=== PATIENT | male | born 1945 | race Caucasian/White ===

== ENCOUNTER 2017-07-20 20:04 | Emergency (ER) | payer MEDICARE, OTHER ==
[~2017-07-20] VITALS: Ht 170.2 cm; Wt 95.3 kg
[~2017-07-20 20:04] MED LIST changes: -DOXY-181 PO; -OXYC-865 PO; -PRED-1 PO; -PRED-420 PO
[2017-07-20] MEDS ORDERED: predniSONE 20 MG TAB PO ONE (20:15)
[2017-07-20] MEDS ORDERED: IBUPROFEN 200 MG TAB PO ONE (20:15)
--- NOTE | 2017-07-20 20:21 | ER Report ---
History and Physical Time Seen By MD: 20:05 Hx. of Stated Complaint: swollen, painful right knee since last night HPI/ROS CHIEF COMPLAINT: Right knee pain and swelling HISTORY OF PRESENT ILLNESS: 71-year-old male brought in by EMS from home. Patient has right knee swelling for 3 days. He recalls no traumatic injury. He denies history of gout. He does have a history of arthritis. He's had a sinus infection for over one week. He notes no fever, chills or body aches. Presently. There is obviously a tense effusion with normal appearing, skin of the right knee. He is unable to get comfortable. He describes significant 8/ 10 throbbing pain in his right knee, aggravated by any movement or palpation. Allergies: Coded Allergies: iodine (Verified Allergy, Mild, 07/20/17) Penicillins (Verified Allergy, Unknown, 07/20/17) Home Meds Active Scripts Prednisone 10 Mg Tab (PREDNISONE 10 MG TAB) 10 Mg Tablet, 10 MG PO QDAY Y for reduce arthritis inflammation, #6 2 tabs daily for 2 days 1 tab daily for 2 days Prov:VERO MOBLEY DO 07/20/17 Oxycodone Hcl/Acetaminophen (PERCOCET 5-325 MG TABLET) 1 Each Tablet, 1-2 EACH PO Q4-6H Y for pain, #15 Prov:VERO MOBLEY DO 07/20/17 Losartan Potassium (LOSARTAN POTASSIUM) 25 Mg Tablet, 50 MG PO QDAY, #30 TAB 3 Refills Prov:ANN-MARIE MIRANDA MD 06/18/17 Citalopram Hydrobromide (CITALOPRAM HBR) 20 Mg Tablet, 20 MG PO QDAY, #30 TAB 5 Refills Prov:ANN-MARIE MIRANDA MD 06/18/17 Atorvastatin (LIPITOR) 80 Mg Tab, 1 TAB PO QDAY, #90 TAB 3 Refills Prov:ANN-MARIE MIRANDA MD 05/26/17 Ticagrelor (BRILINTA) 90 Mg Tablet, 90 MG PO BID, #180 TAB 3 Refills Prov:ANN-MARIE MIRANDA MD 05/26/17 Fluticasone Prop 50 Mcg Ns (FLONASE 50 MCG NS) 16 Gm [place].susp, 2 SPRAYS NS QDAY, #1 BOT 1 Refill Prov:ANN-MARIE MIRANDA MD 05/04/17 Reported Medications Nitroglycerin (NITROGLYCERIN) 0.4 Mg Tab.subl, 0.4 MG SL Q5MIN Y for chest pain 05/04/17 Aspirin (ASPIR 81) 81 Mg Tablet.dr, 81 MG PO QDAY, TAB 05/04/17 Omeprazole (OMEPRAZOLE) 40 Mg Capsule.dr, 40 MG PO QDAY, CAP 05/04/17 Carvedilol (CARVEDILOL) 12.5 Mg Tablet, 12.5 MG PO BID, TAB 05/04/17 Albuterol Sulfate 90 Mcg/Act (PROAIR HFA 90 MCG/ACT) 8.5 Gm Hfa.aer.ad, PUFF IH Q4-6H, INHALER 02/24/17 Fluticasone/Salmeterol (ADVAIR HFA 230-21 MCG INHALER) 1 Inh Inh, 2 PUFF INH BID , INH 02/24/17 Discontinued Scripts Azithromycin (Z-PACK) 250 Mg Tablet, 0 PO QDAY, #6 DOSE-PACK Prov:ANN-MARIE MIRANDA MD 06/19/17 Past Medical/Surgical History Recent acute coronary syndrome event, status post stenting at [facility] in early April, hypertension, hyperlipidemia Reviewed Nurses Notes: Yes Old Medical Records Reviewed: Yes Hx Smoking: No Smoking Status: Never Smoker Hx Substance Use Disorder: No Hx Alcohol Use: Yes Constitutional Physical Exam General appearance: Mild distress. Vital signs stable, afebrile Respiratory: Chest is non tender, lungs are clear to auscultation. Cardiac: Regular rate and rhythm Extremities: Examination of the right lower extremity reveals a tense effusion that is warm to the touch. There is no overlying erythema. It is extremely tender to palpation. Patient's unable to move the knee pain. The distal right lower extremity is neurovascularly intact. There is no edema, there is no lymphadenitis or lymphangitis noted DIFFERENTIAL DIAGNOSIS: After history and physical exam differential diagnosis was considered for arthritis flare, gout, septic joint, hemarthrosis Medical Decision Making Data Points Laboratory Hematology Test 07/20/17 21:18 Body Fluid Type Synovial fluid Body Fluid Source Synovial fluid Body Fluid WBC [id number] Body Fluid RBC 0 Body Fluid Neutrophils 94 % Body Fluid Lymphocytes 4 % Body Fluid Monocytes 2 % Body Fluid Eosinophils 0 % Body Fluid Basophils 0 % Body Fluid Crystals None Body Fluid Glucose 125 mg/dL Chemistry Test 07/20/17 21:18 Body Fluid Type Synovial fluid Body Fluid Source Synovial fluid Body Fluid WBC [id number] Body Fluid RBC 0 Body Fluid Neutrophils 94 % Body Fluid Lymphocytes 4 % Body Fluid Monocytes 2 % Body Fluid Eosinophils 0 % Body Fluid Basophils 0 % Body Fluid Crystals None Body Fluid Glucose 125 mg/dL Microbiology Microbiology Date/Time Source Procedure Growth Status 07/20/17 21:18 Synovial Fluid Knee Gram Stain - Final Complete 07/20/17 21:18 Synovial Fluid Knee Body Fluid Culture - Final No growth after 3 days Complete EKG/Imaging Imaging X-ray: Right knee, 3 views was obtained. I viewed the images myself on the PACS system. My interpretation of the images is: No fracture no dislocation or malalignment, degenerative changes noted. The radiologist interpretation had no clinically significant variation from this interpretation. ED Course/Re-evaluation ED Course 07/20/2017 9:22:05 pm arthrocentesis completed Procedure: Arthrocentesis. After verbal informed consent from patient explaining the risks including infection and bleeding a arthrocentesis was performed on the right knee. The arthrocentesis was performed after the patient was prepped and draped in the usual fashion. The joint was anesthetized with 1% lidocaine. Approximately 50 mL of cloudy yellow fluid fluid was obtained. There were no complications. The procedure was performed by myself. Decision to Disposition Date: Jul 20, 2017 Decision to Disposition Time: 20:19 Depart Departure Latest Vital Signs Impression: Primary Impression: Effusion, right knee Additional Impression: Right knee pain Condition: Improved Disposition: HOME OR SELF-CARE Referrals: ANN-MARIE MIRANDA MD (PCP) New Scripts Prednisone 10 Mg Tab (PREDNISONE 10 MG TAB) 10 Mg Tablet 10 MG PO QDAY Y for reduce arthritis inflammation, #6 2 tabs daily for 2 days 1 tab daily for 2 days Prov: VERO MOBLEY DO 07/20/17 Oxycodone Hcl/Acetaminophen (PERCOCET 5-325 MG TABLET) 1 Each Tablet 1-2 EACH PO Q4-6H Y for pain, #15 Prov: VERO MOBLEY DO 07/20/17 Patient Instructions: Knee Pain (ED) Additional Instructions: Apply heating pad to your knee Follow-up with your primary care if unimproved in 3-5 days Problem Qualifiers Additional Impression: Right knee pain Chronicity: acute Qualified Codes: M25.561 - Pain in right knee VERO MOBLEY DO Jul 20, 2017 20:21
[2017-07-20 20:30] VITALS: BP 154/87
--- NOTE | 2017-07-20 20:45 | RADIOLOGY IMAGING REPORT ---
[facility] PATIENT NAME: Chago Newby : 1945 MR: [id number] V: [id number] EXAM DATE: ORDERING PHYSICIAN: VERO MOBLEY TECHNOLOGIST: Location: [facility] [place] Patient: Chago Newby : 1945 Visit/Account:[id number] Date of Sevice: 07/20/2017 KNEE 3 VIEW RIGHT History: Swollen painful knee COMPARISON: 12/30/2016. FINDINGS: 3 views are provided. Mild degenerative narrowing of the tibiofemoral joint space. Moderate suprapatellar joint effusion. No evidence of fracture. No destructive bone lesion. IMPRESSION: 1. Moderate suprapatellar joint effusion. 2. Mild osteoarthritis. Report Dictated By: José Ortega MD at 07/20/2017 8:39 PM Report E-Signed By: José Ortega MD at 07/20/2017 8:40 PM WSN:[id number]
[2017-07-20] MEDS ORDERED: PRED-1 PO (21:10)
[2017-07-20] MEDS ORDERED: OXYC-865 PO (21:10)
[2017-07-20] MEDS ORDERED: oxyCODONE/ACETAMIN 5/325MG TH 2 TAB/BOTTLE PO ONE (21:25)
[2017-07-27] MEDS ORDERED: OXYC-865 PO (16:16)
[2017-07-27] MEDS ORDERED: PRED-420 PO (16:16)
[2017-07-27] MEDS ORDERED: DOXY-181 PO (16:16)
== END 2017-07-20 21:53 | disposition home or self-care (01) ==
LOC: ER 20:12
DX: M25.461 Effusion, right knee (principal)
CPT/HCPCS: 20610; 73562; 82945; 87071; 87205; 89050; 89060; 99283; A9270; J7512; L1830

== ENCOUNTER → 2017-07-20 | Outpatient (CLI) | payer MEDICARE, OTHER ==
[~2017-07-20] MED LIST: ADV230RPT INH; ADV250/50 INH; ADV500/50 INH; ADVAIR; ALB6.7R INH; ALBU8.5H IH; ALBUTEROL; ASP325 PO; ASPI-1471 PO; ATR80PT PO; AZIT-17 PO; BACDS PO; CARV12.578 PO; CARV25TA77 PO; CARV25TA78 PO; CHLOR25 PO; CITA-137 PO; CITA-139 PO; DOXY-181 PO; FLUT16SP19 NS; GEMF600T89 PO; GEMF600T91 PO; LEVO750T25 PO; LIS20 PO; LOR5/325 PO; LOSA100T67 PO; LOSA100T68 PO; LOSA25TA50 PO; MOX400 PO; MULT-1335 PO; NAPR-1043 PO; NITR0.4T3 SL; OLME1TAB PO; OMEP-218 PO; OMEP40CA48 PO; OXYC-865 PO; PRE20 PO; PRED-1 PO; PRED-420 PO; PREDNISONE; PROAIRPT IH; RAN150 PO; TAMS0.4C69 PO; TICA90TA PO; TIO18R INH
== END ==
LOC: AMB 19:51
PROVIDERS: ATTEND Nurse Practitioner
DX: M25.561 Pain in right knee (principal); M79.89 Other specified soft tissue disorders; Z98.890 Other specified postprocedural states
CPT/HCPCS: A0425; A0429

== ENCOUNTER 2017-07-21 12:22 | Emergency (ER) | payer MEDICARE, OTHER ==
[~2017-07-21 12:22] MED LIST changes: +OXYC-865 PO; +PRED-1 PO
--- NOTE | 2017-07-21 12:27 | ER Report ---
History and Physical Time Seen By MD: 12:27 HPI/ROS CHIEF COMPLAINT: Right knee pain and swelling HISTORY OF PRESENT ILLNESS: Called to return by Dr. Méndez after joint tap revealed many white blood cells but no organisms seen on Gram stain. Patient reports swelling has decreased overall. He is having pain with weightbearing. He denies any previous trauma. Symptoms have been ongoing since Thursday. per report. He did have some relief after joint was tapped. No fevers, chills, nausea or vomiting however patient didn't have some sweats last night. No redness to the affected extremity. No other concerns or complaints. Admits to history of arthritis. No known history of gout or other inflammatory disorder. REVIEW OF SYSTEMS: Respiratory: No cough, no dyspnea. Cardiovascular: No chest pain, no palpitations. Gastrointestinal: No vomiting, no abdominal pain. Musculoskeletal: No back pain. Allergies: Coded Allergies: iodine (Verified Allergy, Mild, 07/20/17) Penicillins (Verified Allergy, Unknown, 07/20/17) Home Meds Active Scripts Prednisone 10 Mg Tab (PREDNISONE 10 MG TAB) 10 Mg Tablet, 10 MG PO QDAY Y for reduce arthritis inflammation, #6 2 tabs daily for 2 days 1 tab daily for 2 days Prov:VERO MÉNDEZ DO 07/20/17 Oxycodone Hcl/Acetaminophen (PERCOCET 5-325 MG TABLET) 1 Each Tablet, 1-2 EACH PO Q4-6H Y for pain, #15 Prov:DELILAH MÉNDEZJorge Verde DO 07/20/17 Losartan Potassium (LOSARTAN POTASSIUM) 25 Mg Tablet, 50 MG PO QDAY, #30 TAB 3 Refills Prov:ANN-MARIE MIRANDA MD 06/18/17 Citalopram Hydrobromide (CITALOPRAM HBR) 20 Mg Tablet, 20 MG PO QDAY, #30 TAB 5 Refills Prov:ANN-MARIE MIRANDA MD 06/18/17 Atorvastatin (LIPITOR) 80 Mg Tab, 1 TAB PO QDAY, #90 TAB 3 Refills Prov:ANN-MARIE MIRANDA MD 05/26/17 Ticagrelor (BRILINTA) 90 Mg Tablet, 90 MG PO BID, #180 TAB 3 Refills Prov:ANN-MARIE MIRANDA MD 05/26/17 Fluticasone Prop 50 Mcg Ns (FLONASE 50 MCG NS) 16 Gm [place].susp, 2 SPRAYS NS QDAY, #1 BOT 1 Refill Prov:ANN-MARIE MIRANDA MD 05/04/17 Reported Medications Nitroglycerin (NITROGLYCERIN) 0.4 Mg Tab.subl, 0.4 MG SL Q5MIN Y for chest pain 05/04/17 Aspirin (ASPIR 81) 81 Mg Tablet.dr, 81 MG PO QDAY, TAB 05/04/17 Omeprazole (OMEPRAZOLE) 40 Mg Capsule.dr, 40 MG PO QDAY, CAP 05/04/17 Carvedilol (CARVEDILOL) 12.5 Mg Tablet, 12.5 MG PO BID, TAB 05/04/17 Albuterol Sulfate 90 Mcg/Act (PROAIR HFA 90 MCG/ACT) 8.5 Gm Hfa.aer.ad, PUFF IH Q4-6H, INHALER 02/24/17 Fluticasone/Salmeterol (ADVAIR HFA 230-21 MCG INHALER) 1 Inh Inh, 2 PUFF INH BID , INH 02/24/17 Discontinued Scripts Azithromycin (Z-PACK) 250 Mg Tablet, 0 PO QDAY, #6 DOSE-PACK Prov:ANN-MARIE MIRANDA MD 06/19/17 Hx Smoking: No Smoking Status: Never Smoker Hx Substance Use Disorder: No Hx Alcohol Use: Yes Constitutional Vital Sign - Last 24 Hours 07/21/17 12:37 Temp 98.6 Pulse 75 Resp 18 B/P (MAP) 149/82 Pulse Ox 88 O2 Delivery Room Air Physical Exam General Appearance: The patient is alert, has no immediate need for airway protection and no current signs of toxicity. Appears to be in no discrete distress. Eyes: Pupils equal and round no injection. Respiratory: Chest is non tender, lungs are clear to auscultation. Cardiac: regular rate and rhythm [ ] Gastrointestinal: Abdomen is soft and non tender, no masses, bowel sounds normal. Musculoskeletal: Neck: Neck is supple and non tender. Right knee is tender and swollen with mild warmth and no overlying skin changes. Range of motion is limited by pain/effusion. Patella appears to be ballotable. No signs of infection from previous knee aspiration. Extremities have full range of motion and are non tender. Skin: No rashes or lesions. No overlying skin changes DIFFERENTIAL DIAGNOSIS: After history and physical exam differential diagnosis was considered for septic arthritis inflammatory effusion, other Medical Decision Making Data Points Result Diagram: 07/21/17 1251 07/21/17 1251 Laboratory Hematology Test 07/21/17 12:51 Red Blood Count 4.09 M/uL (4.00-5.60) Mean Corpuscular Volume 82.4 fL (80.0-96.0) Mean Corpuscular Hemoglobin 27.4 pg (26.0-33.0) Mean Corpuscular Hemoglobin Concent 33.2 g/dL (32.0-36.0) Red Cell Distribution Width 17.6 % (11.5-14.5) Mean Platelet Volume 7.3 fL (7.2-11.1) Neutrophils (%) (Auto) 83.5 % (39.4-72.5) Lymphocytes (%) (Auto) 7.2 % (17.6-49.6) Monocytes (%) (Auto) 9.0 % (4.1-12.4) Eosinophils (%) (Auto) 0.0 % (0.4-6.7) Basophils (%) (Auto) 0.3 % (0.3-1.4) Nucleated RBC Relative Count (auto) 0.0 /100WBC Neutrophils # (Auto) 11.8 K/uL (2.0-7.4) Lymphocytes # (Auto) 1.0 K/uL (1.3-3.6) Monocytes # (Auto) 1.3 K/uL (0.3-1.0) Eosinophils # (Auto) 0.0 K/uL (0.0-0.5) Basophils # (Auto) 0.0 K/uL (0.0-0.1) Nucleated RBC Absolute Count (auto) 0.00 K/uL Sodium Level 136 mmol/L (137-145) Potassium Level 4.2 mmol/L (3.5-5.0) Chloride Level 101 mmol/L (98-107) Carbon Dioxide Level 22 mmol/L (22-30) Blood Urea Nitrogen 19 mg/dl (9-21) Creatinine 1.10 mg/dl (0.66-1.25) Glomerular Filtration Rate Calc > 60.0 Random Glucose 123 mg/dl (75-110) Calcium Level 9.3 mg/dl (8.4-10.2) C-Reactive Protein 8.6 mg/dl (<1.0) Chemistry Test 07/21/17 12:51 White Blood Count 14.1 k/uL (4.5-11.0) Red Blood Count 4.09 M/uL (4.00-5.60) Hemoglobin 11.2 g/dL (14.0-18.0) Hematocrit 33.7 % (42.0-52.0) Mean Corpuscular Volume 82.4 fL (80.0-96.0) Mean Corpuscular Hemoglobin 27.4 pg (26.0-33.0) Mean Corpuscular Hemoglobin Concent 33.2 g/dL (32.0-36.0) Red Cell Distribution Width 17.6 % (11.5-14.5) Platelet Count 300 K/uL (150-450) Mean Platelet Volume 7.3 fL (7.2-11.1) Neutrophils (%) (Auto) 83.5 % (39.4-72.5) Lymphocytes (%) (Auto) 7.2 % (17.6-49.6) Monocytes (%) (Auto) 9.0 % (4.1-12.4) Eosinophils (%) (Auto) 0.0 % (0.4-6.7) Basophils (%) (Auto) 0.3 % (0.3-1.4) Nucleated RBC Relative Count (auto) 0.0 /100WBC Neutrophils # (Auto) 11.8 K/uL (2.0-7.4) Lymphocytes # (Auto) 1.0 K/uL (1.3-3.6) Monocytes # (Auto) 1.3 K/uL (0.3-1.0) Eosinophils # (Auto) 0.0 K/uL (0.0-0.5) Basophils # (Auto) 0.0 K/uL (0.0-0.1) Nucleated RBC Absolute Count (auto) 0.00 K/uL Glomerular Filtration Rate Calc > 60.0 Calcium Level 9.3 mg/dl (8.4-10.2) C-Reactive Protein 8.6 mg/dl (<1.0) ED Course/Re-evaluation ED Course 07/21/2017 1:03:13 pm the plan of care was discussed and agreed upon prior to ordering of lab tests. Previous results including synovial fluid Gram stain and culture pending were reviewed Gram stain showed no organisms. Multiple white blood cell count synovial fluid could be signs of inflammatory or infectious process. Last night's x-ray report was reviewed. Plan for consultation with orthopedics after results obtained. 07/21/2017 1:41:41 pm orthopedics paged for consultation. The case was discussed with Dr. Osorio who agrees with plan and will see the patient in the office this afternoon. Decision to Disposition Date: Jul 21, 2017 Decision to Disposition Time: 13:53 Depart Departure Latest Vital Signs Vital Signs Date Time Temp Pulse Resp B/P (MAP) Pulse Ox O2 Delivery O2 Flow Rate FiO2 07/21/17 12:37 98.6 75 18 149/82 88 Room Air Impression: Primary Impression: Right knee pain Additional Impression: Swelling of right knee joint Condition: Improved Disposition: HOME OR SELF-CARE Referrals: ANN-MARIE MIRANDA MD (PCP) TOÑO OSORIO MD Patient Instructions: Joint Aspiration (GEN) Additional Instructions: Call Dr. Osorio's office for an appointment this afternoon. Problem Qualifiers JEREMIAH MOYER MD Jul 21, 2017 12:27
[2017-07-21 13:12] LABS: PLATELET COUNT, AUTOMATED 300 K/uL (150-450)
[2017-07-21 13:55] VITALS: BP 132/77
== END 2017-07-21 14:10 | disposition home or self-care (01) ==
LOC: ER 12:35
DX: M25.561 Pain in right knee (principal); M79.89 Other specified soft tissue disorders
CPT/HCPCS: 36415; 82310; 82374; 82435; 82565; 82947; 84132; 84295; 84520; 84550; 85025; 85651; 86140; 87040; 99283

== ENCOUNTER → 2017-08-03 | Outpatient (CLI) | payer MEDICARE, OTHER ==
[~2017-08-03] MED LIST changes: +DOXY-181 PO; +PRED-420 PO
--- NOTE | 2017-08-03 09:23 | EKG ---
FACILITY: [facility] [place] PATIENT NAME: REJI CUEVAS : [id number] MR: [id number] V: [id number] EXAM DATE: ORDERING PHYSICIAN: ANN-MARIE MIRANDA TECHNOLOGIST: SANDY Grajeda Reason : CHEST PAIN Blood Pressure : / mmHG Vent. Rate : 056 BPM Atrial Rate : 056 BPM P-R Int : 188 ms QRS Dur : 088 ms QT Int : 404 ms P-R-T Axes : 065 053 064 degrees QTc Int : 389 ms Sinus bradycardia Low voltage QRS Borderline ECG When compared with ECG of 24-APR-2017 05:11, Minimal criteria for Anteroseptal infarct are no longer present ST no longer depressed in Anterior leads T wave inversion no longer evident in Anterior leads Referred By: Confirmed By:
== END ==
LOC: RESP 08:49
PROVIDERS: ATTEND Internal Medicine
DX: Z02.9 Encounter for administrative examinations, unspecified (principal)

== ENCOUNTER 2017-09-11 15:00 | Outpatient (RCR) | payer MEDICARE, OTHER ==
[2017-06-15 15:37] VITALS: BP 138/72
[2017-06-15 15:38] VITALS: BP 128/68
--- NOTE | 2017-06-15 16:11 | CARDIAC REHAB PLAN OF CARE ---
Physician: Vincent Tobar MD Patient is being seen: Oscar Gonzalez [facility] Diagnosis: NSTEMI, Stent x 3 Date of Initial Evaluation: 06/15/2017 SHORT TERM GOALS Short Term Goals Due Date: 07/15/17 Short Term Goals: 71 year old male phase II patient comes to cardiac rehab following a NSTEMI and 1 stent placed on 2016, and two more stents placed on June 01, 2017. Goals for rehab are achieving consistent cardio exercise of at least 150 minutes of a moderate level, and add in weight resistance at least twice a week. Patient will also adjust diet to follow a heart healthy diet plan with portion control to allow for some weight lose. Patient is 5'7" and 205 pounds with a healthy max BMI weight listed at 160 pounds. 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 Patient will also adjust diet to follow a heart healthy diet with proper portions to allow for a gradual weight loss of 1-2 pounds per week. Network Controller Goals Met: Network Controller Goals Not Met Due To: PATIENT'S GOALS Patient Goals Due Date: 07/15/17 Patient Goals: Patient goals are to improve health and increase endurance and strength. Patient Goals Met: Patient Goals Not Met Due To: Cardiac Rehabilitation Plan of Care Comment: Cardiac rehab staff will monitor, record, and evaluate vitals, ECG, and exercise results to provide the best plan of care for the patient throughout the phase II program. CR staff will motivate and educate the patient during visits for rehab. TERRANCE
[2017-06-17 16:30] VITALS: BP_SYST 128; BP_SYST 130; BP_DIAS 66; BP_DIAS 82
[2017-06-19 16:52] VITALS: BP 132/84
[2017-06-19 16:54] VITALS: BP 140/88
[2017-06-22 16:36] VITALS: BP 124/78
[2017-06-22 16:38] VITALS: BP 122/78
[2017-06-26 16:22] VITALS: BP_SYST 122; BP_SYST 126; BP_DIAS 74; BP_DIAS 76
[2017-06-29 16:34] VITALS: BP 130/88
[2017-06-29 16:35] VITALS: BP 130/72
[2017-07-01 16:22] VITALS: BP 130/70
[2017-07-01 16:23] VITALS: BP 122/70
[2017-07-03 17:00] VITALS: BP 130/70
[2017-07-03 17:01] VITALS: BP 122/70
[2017-07-06 17:48] VITALS: BP 132/78
[2017-07-06 17:49] VITALS: BP 122/74
[2017-07-08 16:16] VITALS: BP 132/76
[2017-07-08 16:17] VITALS: BP 126/70
[2017-07-15 16:22] VITALS: BP_SYST 110; BP_SYST 132; BP_DIAS 64; BP_DIAS 74
[2017-07-17 17:05] VITALS: BP 130/72
[2017-07-17 17:06] VITALS: BP 120/78
--- NOTE | 2017-07-17 17:38 | CARDIAC REHAB PLAN OF CARE ---
Physician: Amadou LING Patient is being seen: Oscar Gonzalez [facility] Diagnosis: NSTEMI, Stent x 3 Date of Initial Evaluation: 06/15/17 SHORT TERM GOALS Short Term Goals Due Date: 08/17/17 Short Term Goals: 71 year old male phase II patient comes to cardiac rehab following a NSTEMI and 1 stent placed on 2016, and two more stents placed on June 01, 2017. Goals for rehab are achieving consistent cardio exercise of at least 150 minutes of a moderate level, and add in weight resistance at least twice a week. Patient will also adjust diet to follow a heart healthy diet plan with portion control to allow for some weight lose. Patient is 5'7" and 205 pounds with a healthy max BMI weight listed at 160 pounds. Short Term Goals Met: Patient has completed 12 visits for cardiac rehab and tolerates 45 minutes of a moderate level of cardio exercise followed by weight resistance exercise. During exercise SPO2 levels are 89-91% and the ship carpenter shows a NSR with an occasional PVC and rates are 90-97. 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 Patient will also add in weight resistance exercise at least twice a week. Patient will also remain consistent with heart healthy meals and snacks with portion control to also allow for weight loss. Systems Librarian Goals Met: Systems Librarian Goals Not Met Due To: PATIENT'S GOALS Patient Goals Due Date: 08/17/17 Patient Goals: Patient goals are to improve health, improve endurance and strength, and remain active. Patient Goals Met: Patient Goals Not Met Due To: Cardiac Rehabilitation Plan of Care Comment: Cardiac rehab staff will continue to monitor, record, and evaluate vitals, ECG, and exercise results to provide the best plan of care for the patient throughout the 36 visit phase II program. CR staff will motivate and educate the patient during visits for rehab. TERRANCE
[2017-08-03 17:24] VITALS: BP 124/74
[2017-08-03 17:25] VITALS: BP 120/80
[2017-08-05 17:37] VITALS: BP 122/72
[2017-08-05 17:38] VITALS: BP 118/70
[2017-08-07 16:44] VITALS: BP 130/72
[2017-08-07 16:45] VITALS: BP 122/78
[2017-08-10 16:40] VITALS: BP 116/62
[2017-08-10 16:41] VITALS: BP 115/64
[2017-08-19 17:17] VITALS: BP 130/62
[2017-08-19 17:18] VITALS: BP 138/72
--- NOTE | 2017-08-19 17:41 | CARDIAC REHAB PLAN OF CARE ---
Physician: Gonzales Tobar MD Patient is being seen: Oscar Gonzalez [facility] Diagnosis: NSTEMI, Stent x 3 Date of Initial Evaluation: 06/15/17 SHORT TERM GOALS Short Term Goals Due Date: 09/16/17 Short Term Goals: 71 year old male phase II patient comes to cardiac rehab following a NSTEMI and 1 stent placed on 2016, and two more stents placed on June 01, 2017. Goals for rehab are achieving consistent cardio exercise of at least 150 minutes of a moderate level, and add in weight resistence at least twice a week. Patient will also adjust diet to follow a heart healthy diet plan with portion control to allow for some weight lose. Patient is 5'7" and 205 pounds with a healthy max BMI weight listed at 160 pounds. Short Term Goals Met: Patient has made 17 visits for cardiac rehab and tolerates 40 minutes of a moderate level of cardio followed by weight resistance with 5 pound dumbbells. During exercise SPO2 levels are 89-93% on room air and the monitoring specialist shows a NSR-ST with an occasional PVC and rates up to 103. Short Term Goals Not Met Due To: SENIOR CARE GOALS Peanut Farmer Goal Due Date: 10/17/17 Peanut Farmer Goals: half-way goals for the patient are to maintain consistent moderate level cardio exercise of at least 150 minutes each week, and weight resistance at least twice a week. Patient will also continue to eat heart healthy foods with portion control to allow for some weight loss toward his healthy max BMI of 160 pounds. Alf Goals Met: Peanut Farmer Goals Not Met Due To: PATIENT'S GOALS Patient Goals Due Date: 09/16/17 Patient Goals: Patient goals are to gain better cardiac and overall health, improve endurance and strength and have better energy to remain active. Patient Goals Met: Patient Goals Not Met Due To: Cardiac Rehabilitation Plan of Care Comment: Cardiac rehab staff will continue to monitor, record, and evaluate vitals, ECG, and exercise results to provide the best plan of care throughout the 36 visit phase II program. CR staff will educate and motivate the patient during visits for rehab. TERRANCE
[2017-08-21 16:23] VITALS: BP_SYST 128; BP_SYST 130; BP_DIAS 64; BP_DIAS 66
[2017-08-24 16:50] VITALS: BP 102/58
[2017-08-24 16:51] VITALS: BP 104/64
[2017-08-26 16:36] VITALS: BP 118/62
[2017-08-26 16:37] VITALS: BP 100/60
[2017-08-28 16:33] VITALS: BP 142/86
[2017-08-28 16:35] VITALS: BP 120/80
[2017-08-31 17:04] VITALS: BP 124/74
[2017-08-31 17:06] VITALS: BP 104/64
[2017-09-02 17:41] VITALS: BP 117/64
[2017-09-02 17:42] VITALS: BP 132/78
[2017-09-04 16:32] VITALS: BP 126/62
[2017-09-04 16:34] VITALS: BP 142/70
[2017-09-09 16:49] VITALS: BP_SYST 128; BP_SYST 130; BP_DIAS 74; BP_DIAS 84
[2017-09-11 17:01] VITALS: BP 108/64
[2017-09-11 17:03] VITALS: BP 118/62
== END 2017-09-13 ==
LOC: CARD 15:00
PROVIDERS: ATTEND Internal Medicine
DX: I25.2 Old myocardial infarction (principal); Z95.5 Presence of coronary angioplasty implant and graft
CPT/HCPCS: 93798

== ENCOUNTER 2017-09-22 | Outpatient (RCR) | payer MEDICARE, OTHER ==
[2017-09-22 08:27] LABS: PLATELET COUNT, AUTOMATED 290 K/uL (150-450)
[2017-09-22 08:49] LABS: LDL CHOLESTEROL 30 mg/dl
[2017-09-25] MEDS ORDERED: IOPAMIDOL 76% 75 ML INFUS BTL 75 ML ONE (09:00)
--- NOTE | 2017-09-25 11:04 | RADIOLOGY IMAGING REPORT ---
FACILITY: [facility] [place] PATIENT NAME: Chago Newby : 1945 MR: [id number] V: [id number] EXAM DATE: ORDERING PHYSICIAN: ANN-MARIE MIRANDA TECHNOLOGIST: Location: [facility] Patient: Chago Newby : 1945 Visit/Account:[id number] Date of Sevice: 09/25/2017 ABDOMEN/PELVIS W/WO CONTRAST HISTORY: abdominal pain, hx of diverticulitis TECHNIQUE: Axial images acquired through the abdomen/pelvis both with and without IV contrast.. Princess nal and sagittal reformatting also performed. Dose Lowering Technique One of the following dose optimization techniques was utilized in the performance of this exam: Autom ated exposure control; adjustment of the mA and/or kV according to the patient's size; or use of an i terative reconstruction technique. Specific details can be referenced in the facility's radiology C T exam operational policy. CONTRAST: 75 mL Isovue-370 COMPARISON: September 10, 2015 FINDINGS: Visualized lung bases: Minimal scarring in the left lower lobe Hepatobiliary: Negative. Spleen: Negative. Adrenals: Negative. Pancreas: Negative. Kidneys ureters and bladder: Left upper pole renal cyst appears unchanged. Other tiny hypodensities in both kidneys are too small to characterize Genitalia: Prostate gland mildly enlarged inhomogeneous containing coarse calcifications GI: There is diverticulosis of the left-sided colon although no CT evidence of acute diverticulitis at this time Vessels/spaces/nodes: Again noted is a small amount of fat herniated cephalad through the medial asp ect the right hemidiaphragm compressing the inferior vena cava similar to the prior study. This [place]t [place] does not appear to be obstructing. Bones/soft tissues: There is a small umbilical hernia containing fat. There are extensive spondylot ic changes of the thoracolumbar spine. Additional findings: None pertinent. IMPRESSION: Diverticulosis of the left-sided colon although no CT evidence of acute diverticulitis at this time Additional chronic findings as described Report Dictated By: Talisha Cosme MD at 09/25/2017 10:40 AM Report E-Signed By: Talisha Cosme MD at 09/25/2017 11:01 AM WSN:[email or web address]
[2017-09-28] MEDS ORDERED: FERR-53 PO (11:15)
[2017-09-28] MEDS ORDERED: FOLI-68 PO (11:15)
[2017-09-28] MEDS ORDERED: CYA1000 PO (11:15)
== END 2017-09-25 18:00 | disposition home or self-care (01) ==
LOC: CT → LAB 08:01 → EDSTATUS 09-23 13:32 → CT 09-25 18:00
PROVIDERS: ATTEND Internal Medicine
DX: Z12.5 Encounter for screening for malignant neoplasm of prostate (principal); R10.9 Unspecified abdominal pain; I25.10 Atherosclerotic heart disease of native coronary artery without angina pectoris; I10 Essential (primary) hypertension; E78.5 Hyperlipidemia, unspecified; G47.33 Obstructive sleep apnea (adult) (pediatric); R79.89 Other specified abnormal findings of blood chemistry; E78.4 Other hyperlipidemia; K57.30 Diverticulosis of large intestine without perforation or abscess without bleeding
CPT/HCPCS: 36415; 74178; 81001; 82607; 82728; 82746; 83036; 83540; 83550; 84443; 84550; 85025; 85651; 86140; G0103; Q9967; 82040; 82247; 82310; 82374; 82435; 82465; 82565; 82947; 83718; 84075; 84132; 84153; 84155; 84295; 84450; 84460; 84478; 84520

== ENCOUNTER → 2017-12-03 | Outpatient (CLI) | payer MEDICARE, OTHER ==
[~2017-12-03] MED LIST changes: -CITA-139 PO; +CITA-145 PO; +CYA1000 PO; +FERR-53 PO; +FOLI-68 PO; +ISOS30TA54 PO
[2017-12-03 16:28] LABS: PLATELET COUNT, AUTOMATED 217 K/uL (150-450)
== END ==
LOC: RESP 15:40
PROVIDERS: ATTEND Internal Medicine
DX: I25.10 Atherosclerotic heart disease of native coronary artery without angina pectoris (principal); R07.9 Chest pain, unspecified; I10 Essential (primary) hypertension; M19.90 Unspecified osteoarthritis, unspecified site; D64.9 Anemia, unspecified
CPT/HCPCS: 82040; 82247; 82310; 82374; 82435; 82565; 82607; 82728; 82746; 82947; 83540; 83550; 84075; 84132; 84155; 84295; 84450; 84460; 84484; 84520; 85025

== ENCOUNTER 2017-12-11 15:00 | Outpatient (RCR) | payer MEDICARE, OTHER ==
[2017-09-14 17:06] VITALS: BP 120/74
[2017-09-14 17:08] VITALS: BP 122/78
[2017-09-16 17:22] VITALS: BP 118/72
[2017-09-16 17:23] VITALS: BP 112/58
[2017-09-18 16:41] VITALS: BP 126/68
[2017-09-18 16:42] VITALS: BP 118/64
[2017-09-21 16:29] VITALS: BP 142/88
[2017-09-21 16:30] VITALS: BP 128/78
[2017-09-23 16:58] VITALS: BP 108/62
[2017-09-23 16:59] VITALS: BP 102/62
[2017-09-25 17:00] VITALS: BP 104/62
[2017-09-25 17:02] VITALS: BP 120/68
[2017-09-28 17:30] VITALS: BP 110/64
[2017-09-28 17:31] VITALS: BP 108/68
[2017-10-07 16:29] VITALS: BP 122/62
[2017-10-09 17:18] VITALS: BP 122/70
[2017-10-09 17:19] VITALS: BP 102/64
[2017-10-12 17:26] VITALS: BP 116/68
[2017-10-12 17:27] VITALS: BP 120/72
[2017-10-14 17:01] VITALS: BP 104/58
[2017-10-14 17:02] VITALS: BP 118/62
[2017-10-21 16:35] VITALS: BP 150/82
[2017-10-21 16:36] VITALS: BP 128/76
[2017-11-02 16:39] VITALS: BP_SYST 116; BP_SYST 124; BP_DIAS 72; BP_DIAS 78
[2017-11-04 15:49] VITALS: BP 140/80
[2017-11-04 16:06] VITALS: BP 132/76
[2017-11-06 16:30] VITALS: BP 110/60
[2017-11-06 16:31] VITALS: BP 120/70
[2017-11-13 17:11] VITALS: BP_SYST 134; BP_SYST 144; BP_DIAS 84
[2017-11-16 16:25] VITALS: BP_SYST 118; BP_SYST 142; BP_DIAS 82; BP_DIAS 88
[2017-11-18 16:33] VITALS: BP 130/74
[2017-11-18 16:34] VITALS: BP 116/72
[2017-11-23 17:10] VITALS: BP_SYST 100; BP_SYST 120; BP_DIAS 62; BP_DIAS 64
[2017-11-25 17:01] VITALS: BP_SYST 112; BP_SYST 124; BP_DIAS 62; BP_DIAS 74
[2017-11-27 16:32] VITALS: BP 138/62
[2017-11-27 16:33] VITALS: BP 122/78
[2017-11-30 16:13] VITALS: BP_SYST 130; BP_SYST 136; BP_DIAS 72; BP_DIAS 82
[2017-12-02 16:11] VITALS: BP 138/80
--- NOTE | 2017-12-03 15:46 | EKG ---
FACILITY: [facility] PATIENT NAME: REJI CUEVAS : [id number] MR: [id number] V: [id number] EXAM DATE: ORDERING PHYSICIAN: ANN-MARIE MIRANDA TECHNOLOGIST: JAYLON Test Reason : CHEST PAIN Blood Pressure : / mmHG Vent. Rate : 055 BPM Atrial Rate : 055 BPM P-R Int : 208 ms QRS Dur : 090 ms QT Int : 432 ms P-R-T Axes : 064 035 060 degrees QTc Int : 413 ms Sinus bradycardia Otherwise normal ECG Referred By: ANN-MARIE MIRANDA Confirmed By:
[2017-12-04 16:53] VITALS: BP 110/60
[2017-12-04 16:55] VITALS: BP 118/60
[2017-12-07 17:06] VITALS: BP 128/72
[2017-12-07 17:08] VITALS: BP 104/66
[2017-12-09 17:00] VITALS: BP 122/62
[2017-12-09 17:02] VITALS: BP 102/70
[2017-12-11 16:23] VITALS: BP 130/72
[2017-12-11 16:24] VITALS: BP 130/72
== END 2017-12-13 ==
LOC: CARD 15:00
PROVIDERS: ATTEND Internal Medicine
DX: I25.2 Old myocardial infarction (principal); Z95.5 Presence of coronary angioplasty implant and graft; M25.571 Pain in right ankle and joints of right foot
CPT/HCPCS: 93798

== ENCOUNTER 2018-02-03 15:00 | Outpatient (RCR) | payer MEDICARE, OTHER ==
[2017-12-16 16:43] VITALS: BP 124/66
[2017-12-16 16:44] VITALS: BP 128/70
[2017-12-18 16:33] VITALS: BP_SYST 112; BP_SYST 115; BP_DIAS 60; BP_DIAS 66
[2017-12-21 17:14] VITALS: BP 134/86
[2017-12-21 17:15] VITALS: BP 112/70
[2017-12-25 16:22] VITALS: BP_SYST 122; BP_SYST 150; BP_DIAS 66; BP_DIAS 88
[2017-12-28 16:26] VITALS: BP 130/70
[2017-12-28 16:27] VITALS: BP 134/70
[2017-12-30 16:16] VITALS: BP_SYST 132; BP_SYST 150; BP_DIAS 80
[2018-01-04 17:27] VITALS: BP 120/68
[2018-01-04 17:28] VITALS: BP 142/72
[2018-01-06 16:47] VITALS: BP 128/68
[2018-01-06 16:48] VITALS: BP 124/72
[2018-01-08 16:29] VITALS: BP_SYST 138; BP_DIAS 74; BP_DIAS 82
[2018-01-11 16:11] VITALS: BP 122/74
[2018-01-11 16:12] VITALS: BP 116/70
[2018-01-13 16:05] VITALS: BP_SYST 122; BP_SYST 138; BP_DIAS 68; BP_DIAS 72
[2018-01-15 16:26] VITALS: BP_SYST 118; BP_SYST 142; BP_DIAS 68; BP_DIAS 80
[2018-01-18 16:56] VITALS: BP 124/70
[2018-01-18 16:57] VITALS: BP 138/72
[2018-01-22 17:03] VITALS: BP_SYST 110; BP_SYST 122; BP_DIAS 62; BP_DIAS 76
[2018-01-25 16:18] VITALS: BP 124/78
[2018-01-25 16:19] VITALS: BP 132/80
[2018-01-27 16:12] VITALS: BP 140/96
[2018-01-27 16:13] VITALS: BP 140/84
[2018-01-29 16:35] VITALS: BP 128/74
[2018-01-29 16:36] VITALS: BP 128/74
[2018-02-01 16:27] VITALS: BP_SYST 120; BP_SYST 124; BP_DIAS 68; BP_DIAS 72
[2018-02-03 17:32] VITALS: BP 128/68
[2018-02-03 17:33] VITALS: BP 122/66
[2018-02-04] MEDS ORDERED: NYST15CR32 TP (13:03)
[2018-02-04] MEDS ORDERED: FLUT16SP19 NS (13:03)
== END 2018-02-03 18:00 | disposition home or self-care (01) ==
LOC: CARD 15:00
PROVIDERS: ATTEND Internal Medicine
DX: I25.2 Old myocardial infarction (principal); Z95.5 Presence of coronary angioplasty implant and graft; M25.571 Pain in right ankle and joints of right foot
CPT/HCPCS: 93798

== ENCOUNTER → 2018-02-04 | Outpatient (CLI) | payer MEDICARE, OTHER ==
[~2018-02-04] MED LIST changes: +NYST15CR32 TP
[2018-02-04 13:31] LABS: PLATELET COUNT, AUTOMATED 273 K/uL (150-450)
[2018-02-04 13:55] LABS: LDL CHOLESTEROL 69 mg/dl
== END ==
LOC: LAB 13:05
PROVIDERS: ATTEND Internal Medicine
DX: I25.10 Atherosclerotic heart disease of native coronary artery without angina pectoris (principal); I10 Essential (primary) hypertension; G47.33 Obstructive sleep apnea (adult) (pediatric); E78.5 Hyperlipidemia, unspecified; D64.9 Anemia, unspecified
CPT/HCPCS: 36415; 81001; 82040; 82247; 82306; 82310; 82374; 82435; 82465; 82565; 82607; 82728; 82746; 82947; 83036; 83540; 83550; 83718; 84075; 84132; 84155; 84295; 84443; 84450; 84460; 84478; 84520; 85025

== ENCOUNTER 2018-02-25 13:42 | Outpatient (RCR) | payer MEDICARE, OTHER ==
[2018-02-19 08:23] VITALS: BP 164/82
[2018-02-19 09:22] LABS: PLATELET COUNT, AUTOMATED 283 K/uL (150-450)
--- NOTE | 2018-02-19 13:16 | ONCOLOGY CONSULTATION ---
EVENT DATE: February 19, [address] Tobar REASON FOR CONSULTATION Evaluation and management of microcytic anemia. HEMATOLOGY HISTORY Patient is a 72-year-old male who has been followed by Dr. Tobar and patient was found lately to have iron deficiency anemia. He was documented to have anemia since May 2017. He had a CBC on February 04, 2018 which showed white count 5.2, hemoglobin 10.1, hematocrit 31.2, platelet 273,000 and MCV 75.2. His creatinine was normal at 1.1. Serum iron was 48, TIBC 454, iron saturation 8.8% and Ferritin was only 6. Vitamin B12 level was 278 while folate was more than 22.3. The patient currently is taking rnnw-vqf-ogjsuob one pill of iron daily and is taking also vitamin B12 supplement orally. He is complaining of fatigue and tiredness but denies any GI symptoms. He denies any rectal bleeding or melena. PAST MEDICAL HISTORY 1. Coronary artery disease, status post myocardial infarction in April 2017, status post four stent placement. 2. Hypertension. 3. Hyperlipidemia. 4. Recurrent sinusitis. 5. Chronic asthma and bronchitis. 6. Obstructive sleep apnea. 7. Diverticulosis. He had hydrocele. 8. Osteoarthritis. 9. Obesity. PAST SURGICAL HISTORY 1. Angioplasty on May 25, 2017. 2. Vascular surgery with cardiac cath in 2008. 3. Hernia repair. 4. Colonoscopy in 2009. 5. Spinal surgery, lumbar disk surgery many years ago. 6. He is not sure if he had tonsillectomy or not. FAMILY HISTORY Negative for cancer or blood diseases. SOCIAL HISTORY Patient is with five children. 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 He is an avid smoker. Denies any abuse of alcohol or illicit drugs. CURRENT MEDICATIONS 1. Nystatin topical cream twice daily. 2. Flonase 50 micrograms nasal spray two sprays daily. 3. Isosorbide mononitrate 30 mg daily. 4. Losartan 25 mg daily. 5. Omeprazole 40 mg daily. 6. Vitamin B12 tablet 1000 micrograms daily. 7. Citalopram 20 mg daily. 8. Atorvastatin 80 mg daily. 9. Brilinta 90 mg twice daily. 10. Nitroglycerin 0.4 mg sublingually p.r.n. for chest pain. 11. Aspirin 81 mg daily. 12. Carvedilol 12.5 mg twice daily. 13. ProAir 90 micrograms one to two puffs every four to six hour p.r.n. 14. Adavir 230/21 micrograms inhaler two puffs twice daily. 15. Vitamin D3 1000 units daily. 16. Iron bocb-iru-brqunqv once daily. ALLERGIES PENICILLIN (causes jaundice). REVIEW OF SYSTEMS CONSTITUTIONAL: No appetite or weight change. No fever, chills or sweating. No recent infection. HEENT: Ears: No tinnitus or hearing problem. Nose: He has nasal discharge. Throat: No sore throat or mouth ulcers. Eyes: No diplopia or visual changes. RESPIRATORY: He has cough with expectoration and shortness of breath. CARDIOVASCULAR: No chest pain, orthopnea, or paroxysmal nocturnal dyspnea (PND) . No edema. No palpitations. GASTROINTESTINAL: No nausea or vomiting. No diarrhea or constipation. No change in bowel movements. No heartburn or swallowing difficulties. No abdominal pain. No jaundice. No hematemesis, melena or rectal bleeding. GENITOURINARY: Patient has had heavy periods for years, and she has been seen by a policy loan calculator, and she was offered uterine ablation, but the patient refused the procedure. As per patient, she has had heavy periods for a total of seven days every month. MUSCULOSKELETAL: He has pain in the ankles and knees. NEUROLOGICAL: He has numbness in his fingers. HEMATOLOGIC/LYMPHATIC: He bruises easily. He is weak, tired and fatigued. SKIN: No skin rash or lumps. PSYCHIATRIC: No anxiety or depression. PHYSICAL EXAMINATION GENERAL: Looks stable. Well-developed, well-nourished, and in no acute distress. VITAL SIGNS: Blood pressure 164/82, pulse 66 per minute, respirations 16 per minute, temperature 97.1, pulse ox 92% on room air. HEENT: Head: Atraumatic. No sinus tenderness to palpation. Eyes: No icterus or conjunctivitis. Mouth and Throat: No oral thrush or mucositis. NECK: Supple. No cervical or supraclavicular lymphadenopathy. LUNGS: Clear to auscultation and percussion bilaterally. HEART: Regular rate and rhythm. No gallops, murmurs, clicks or rubs. ABDOMEN: Soft and lax. No tenderness. No hepatosplenomegaly. No masses. EXTREMITIES: No cyanosis, clubbing or edema. LYMPHATICS: No peripheral lymphadenopathy. NEUROLOGICAL: Conscious, alert and oriented times three. No focal motor or sensory deficits. PSYCHIATRIC: Mood and affect appear normal. SKIN: No skin rash, bruise or purpuric eruption. IMPRESSION 1. Iron deficiency anemia with serum Ferritin 6, iron saturation 8.8%. I am planning to start Ferrous Sulfate 325 mg three times daily and I will refer the patient to Dr. Zuleta for GI workup to see if there is any bleeding source. I am planning to see him again in two months from now with CBC and iron studies with Ferritin to see if there is correction of the iron and anemia or not. 2. Possible vitamin B12 deficiency with vitamin B12 level on the lower side of normal at 278. I am planning to check his methylmalonic acid assay to see if there is biochemical deficiency of vitamin B12 or not and if this is the case I am planning to supplement him with vitamin B12 parenterally as the patient is taking currently vitamin B12 orally. I will consider checking intrinsic factor antibodies and ----- antibodies to rule out the possibility of pernicious anemia also. 3. Coronary artery disease, status post stent placement. 4. Hypertension, on treatment. PLAN 1. Check CBC, 2. Check methylmalonic acid assay. 3. Ferrous Sulfate 325 mg three times daily with meals. 4. Referral to Dr. Zuleta for GI workup with EGD and colonoscopy. 5. Patient to return in one week for further evaluation and management. 6. Patient to contact us for any new concerns or complaints. [facility]
[~2018-02-25 13:42] MED LIST changes: +CHOL10005 PO; -GEMF600T91 PO; +GEMF600T92 PO; -LOSA100T67 PO; +LOSA100T69 PO; -LOSA25TA50 PO; +LOSA25TA52 PO
[2018-02-25 14:00] VITALS: BP 176/88
--- NOTE | 2018-02-25 16:35 | ONCOLOGY FOLLOW UP NOTE ---
EVENT DATE: February 25, 2018 DIAGNOSES 1. Iron deficiency anemia. 2. Coronary artery disease. 3. Hypertension. CHIEF COMPLAINT Patient is here today for followup of his iron deficiency anemia. REASON FOR CONSULTATION Evaluation and management of microcytic anemia. HEMATOLOGY HISTORY Patient is a 72-year-old male who has been followed by Dr. Tobar and patient was found lately to have iron deficiency anemia. He was documented to have anemia since May 2017. He had a CBC on February 04, 2018 which showed white count 5.2, hemoglobin 10.1, hematocrit 31.2, platelet 273,000 and MCV 75.2. His creatinine was normal at 1.1. Serum iron was 48, TIBC 454, iron saturation 8.8% and Ferritin was only 6. Vitamin B12 level was 278 while folate was more than 22.3. The patient currently is taking takq-gts-iewqyin one pill of iron daily and is taking also vitamin B12 supplement orally. He is complaining of fatigue and tiredness but denies any GI symptoms. He denies any rectal bleeding or melena. Methylmalonic acid assay came back normal at 0.16, ruling out the possibility of vitamin B12 deficiency. HISTORY OF PRESENT ILLNESS Patient is here today for followup of his iron deficiency anemia. He is complaining of cough with expectoration and shortness of breath. He has pain in the elbows and knees. He has numbness in his right hand. He bruises easily. He is weak, tired and fatigued. PAST MEDICAL HISTORY 1. Coronary artery disease, status post myocardial infarction in April 2017, status post four stent placement. 2. Hypertension. 3. Hyperlipidemia. 4. Recurrent sinusitis. 5. Chronic asthma and bronchitis. 6. Obstructive sleep apnea. 7. Diverticulosis. He had hydrocele. 8. Osteoarthritis. 9. Obesity. PAST SURGICAL HISTORY 1. Angioplasty on May 25, 2017. 2. Vascular surgery with cardiac cath in 2008. 3. Hernia repair. 4. Colonoscopy in 2009. 5. Spinal surgery, lumbar disk surgery many years ago. 6. He is not sure if he had tonsillectomy or not. FAMILY HISTORY Negative for cancer or blood diseases. SOCIAL HISTORY Patient is with five children. 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 He is an avid smoker. Denies any abuse of alcohol or illicit drugs. CURRENT MEDICATIONS 1. Nystatin topical cream twice daily. 2. Flonase 50 micrograms nasal spray two sprays daily. 3. Isosorbide mononitrate 30 mg daily. 4. Losartan 25 mg daily. 5. Omeprazole 40 mg daily. 6. Vitamin B12 tablet 1000 micrograms daily. 7. Citalopram 20 mg daily. 8. Atorvastatin 80 mg daily. 9. Brilinta 90 mg twice daily. 10. Nitroglycerin 0.4 mg sublingually p.r.n. for chest pain. 11. Aspirin 81 mg daily. 12. Carvedilol 12.5 mg twice daily. 13. ProAir 90 micrograms one to two puffs every four to six hour p.r.n. 14. Adavir 230/21 micrograms inhaler two puffs twice daily. 15. Vitamin D3 1000 units daily. 16. Iron gvvn-vgo-pdiszuq once daily. ALLERGIES PENICILLIN (causes jaundice). REVIEW OF SYSTEMS CONSTITUTIONAL: No appetite or weight change. No fever, chills or sweating. No recent infection. HEENT: Ears: No tinnitus or hearing problem. Nose: He has nasal discharge. Throat: No sore throat or mouth ulcers. Eyes: No diplopia or visual changes. RESPIRATORY: The patient has cough with expectoration and shortness of breath. CARDIOVASCULAR: No chest pain, orthopnea, or paroxysmal nocturnal dyspnea (PND) . No edema. No palpitations. GASTROINTESTINAL: No nausea or vomiting. No diarrhea or constipation. No change in bowel movements. No heartburn or swallowing difficulties. No abdominal pain. No jaundice. No hematemesis, melena or rectal bleeding. GENITOURINARY: Patient has had heavy periods for years, and she has been seen by a critical care physician, and she was offered uterine ablation, but the patient refused the procedure. As per patient, she has had heavy periods for a total of seven days every month. MUSCULOSKELETAL: He has pain in the elbows and knees. NEUROLOGICAL: He has numbness in his right hand. HEMATOLOGIC/LYMPHATIC: He bruises easily. He is weak, tired and fatigued. SKIN: No skin rash or lumps. PSYCHIATRIC: No anxiety or depression. PHYSICAL EXAMINATION GENERAL: Looks stable. Well-developed, well-nourished, and in no acute distress. VITAL SIGNS: Blood pressure 176/88, pulse 67 per minute, respirations 16 per minute, temperature 98.2, pulse ox 91% on room air. HEENT: Head: Atraumatic. No sinus tenderness to palpation. Eyes: No icterus or conjunctivitis. Mouth and Throat: No oral thrush or mucositis. NECK: Supple. No cervical or supraclavicular lymphadenopathy. LUNGS: Clear to auscultation and percussion bilaterally. HEART: Regular rate and rhythm. No gallops, murmurs, clicks or rubs. ABDOMEN: Soft and lax. No tenderness. No hepatosplenomegaly. No masses. EXTREMITIES: No cyanosis, clubbing or edema. LYMPHATICS: No peripheral lymphadenopathy. NEUROLOGICAL: Conscious, alert and oriented times three. No focal motor or sensory deficits. PSYCHIATRIC: Mood and affect appear normal. SKIN: No skin rash, bruise or purpuric eruption. DIAGNOSTIC DATA CBC showed white count 6.7, hemoglobin 10.3, hematocrit 31.2, platelets 283, 000. MCV 74.9. Methylmalonic acid assay was 0.16. ASSESSMENT 1. Iron deficiency anemia with serum ferritin 6, iron saturation 8.8%. The patient started ferrous sulfate 325 mg three times daily on February 18, 2018. I am planning to see him again in two months with CBC, iron studies with ferritin at that time. Patient is referred to Dr. Zuleta for GI workup for his iron deficiency anemia. 2. Possible vitamin B12 deficiency with vitamin B12 level at the lower normal at 278. Methylmalonic acid assay is normal at 0.16, ruling out the possibility of vitamin B12 deficiency. 3. Coronary artery disease, status post stent placement. 4. Hypertension, on treatment. PLAN 1. Continue ferrous sulfate 325 mg three times daily. 2. Await the result of the GI workup which will be done by Dr. Zuleta. 3. Patient to return in two months with CBC, iron studies with ferritin. 4. Patient is to contact us for any new concerns or complaints. [facility]
== END 2018-05-19 ==
LOC: ONC 13:42
PROVIDERS: ATTEND Internal Medicine Hematology
DX: D64.9 Anemia, unspecified (principal); I10 Essential (primary) hypertension; R53.83 Other fatigue; I25.10 Atherosclerotic heart disease of native coronary artery without angina pectoris; E78.5 Hyperlipidemia, unspecified; G47.33 Obstructive sleep apnea (adult) (pediatric); E66.9 Obesity, unspecified; M19.90 Unspecified osteoarthritis, unspecified site; K57.90 Diverticulosis of intestine, part unspecified, without perforation or abscess without bleeding; Z95.5 Presence of coronary angioplasty implant and graft; F17.210 Nicotine dependence, cigarettes, uncomplicated
CPT/HCPCS: 36415; 83921; 85025; G0463; 99212; 99213

== ENCOUNTER 2018-03-24 00:32 | Day surgery (SDC) | payer MEDICARE, OTHER ==
[~2018-03-24] VITALS: Ht 170.2 cm; Wt 90.3 kg
[~2018-03-24 00:32] MED LIST changes: +LOSA100T67 PO; -LOSA100T69 PO; +LOSA25TA50 PO; -LOSA25TA52 PO
[2018-03-24] MEDS ORDERED: PROPOFOL EMUL(*) 10MG/ML 20 ML 20 ML ONE ×2 (07:07→10:58)
[2018-03-24 07:10] VITALS: BP 163/92
[2018-03-24] MEDS ORDERED: NORMOSOL R SOLN(*) 1000 ML BAG 1,000 ML IV PRN (08:30)
[2018-03-24] MEDS ORDERED: LIDOCAINE/SOD BICARB 8.4% SYR ID ONE (08:30)
[2018-03-24 11:35] VITALS: BP 136/76
--- NOTE | 2018-03-24 11:49 | Short(Outpt) Discharge Summary ---
Discharge Summary Reason for Hosp/Final Diag: (1) Anemia Status: Chronic Hospital Course & Plan: EGD and colonoscopy were completed without problems. No biopsies performed today as pt on antiplatelet therapy for a coronary stent placed earlier this year. Departure Discharge to: Home, Self Care Discharge Instructions Home Meds Active Scripts Fluticasone Prop 50 Mcg Ns (FLONASE 50 MCG NS) 16 Gm Reliance.susp, 2 SPRAYS NS QDAY, #1 BOT 3 Refills Prov:ANN-MARIE MIRANDA MD 02/04/18 Isosorbide Mononitrate (ISOSORBIDE MONONITRATE ER) 30 Mg Tab.er.24h, 30 MG PO QDAY, #30 TAB 3 Refills Prov:ANN-MARIE MIRANDA MD 12/03/17 Losartan Potassium (LOSARTAN POTASSIUM) 25 Mg Tablet, 25 MG PO QDAY, #30 TAB 6 Refills Prov:ANN-MARIE MIRANDA MD 12/03/17 Omeprazole (OMEPRAZOLE) 40 Mg Capsule.dr, 40 MG PO QDAY, #90 CAP 4 Refills Prov:ANN-MARIE MIRANDA MD 11/09/17 Cyanocobalamin (Vitamin B-12) (VITAMIN B-12) 1,000 Mcg Tablet, 1000 MCG PO QDAY, #30 TAB Prov:ANN-MARIE MIRANDA MD 09/28/17 Citalopram Hydrobromide (CITALOPRAM HBR) 20 Mg Tablet, 20 MG PO QDAY, #30 TAB 5 Refills Prov:ANN-MARIE MIRANDA MD 06/18/17 Atorvastatin (LIPITOR) 80 Mg Tab, 1 TAB PO QDAY, #90 TAB 3 Refills Prov:ANN-MARIE MIRANDA MD 05/26/17 Ticagrelor (BRILINTA) 90 Mg Tablet, 90 MG PO BID, #180 TAB 3 Refills Prov:ANN-MARIE MIRANDA MD 05/26/17 Reported Medications Cholecalciferol (Vitamin D3) (VITAMIN D3) 1,000 Unit Tablet, 1000 UNIT PO, TAB 02/19/18 Nitroglycerin (NITROGLYCERIN) 0.4 Mg Tab.subl, 0.4 MG SL Q5MIN PRN for chest pain 05/04/17 Aspirin (ASPIR 81) 81 Mg Tablet.dr, 81 MG PO QDAY, TAB 05/04/17 Carvedilol (CARVEDILOL) 12.5 Mg Tablet, 12.5 MG PO BID, TAB 05/04/17 Albuterol Sulfate 90 Mcg/Act (PROAIR HFA 90 MCG/ACT) 8.5 Gm Hfa.aer.ad, PUFF IH Q4-6H, INHALER 02/24/17 Fluticasone/Salmeterol (ADVAIR HFA 230-21 MCG INHALER) 1 Inh Inh, 2 PUFF INH BID, INH 02/24/17 Diet: Regular Activity: As Tolerated Special Instructions: Your upper endoscopy and colonoscopy were completed without problems and your prep was excellent. I saw some mild inflammation in your sigmoid colon and rectum. This could be due to the bowel prep or may be more chronic, it's difficult to say. I didn't see any active bleeding or any obvious source of chronic blood loss. My office will contact you and will arrange for a small intestinal x-ray study and they will schedule a follow up appointment to see you back in my office. We will hold off on removing the nodule behind your ear until it's safe to stop your plavix before surgery. Problem Qualifiers (1) Anemia: Anemia type: unspecified type Qualified Codes: D64.9 - Anemia, unspecified JANIS MULLINS MD Mar 24, 2018 11:49
[2018-03-24 11:58] VITALS: BP 140/75
[2018-03-24 12:12] VITALS: BP 124/67
[2018-03-24 12:14] VITALS: BP 129/76
== END 2018-03-24 13:10 | disposition home or self-care (01) ==
LOC: OR 00:32
PROVIDERS: ATTEND Surgery
DX: D64.9 Anemia, unspecified (principal); K52.9 Noninfective gastroenteritis and colitis, unspecified
CPT/HCPCS: 00811; 43235; 45378; J2704

== ENCOUNTER → 2018-03-31 | Outpatient (CLI) | payer MEDICARE, OTHER ==
[~2018-03-31] MED LIST changes: +BARIUM SULFATE 600 ML SUSP ONE; -LOSA100T67 PO; +LOSA100T69 PO; -LOSA25TA50 PO; +LOSA25TA52 PO
--- NOTE | 2018-03-31 14:12 | RADIOLOGY IMAGING REPORT ---
FACILITY: [facility] PATIENT NAME: Chago Newby : 1945 MR: [id number] V: [id number] EXAM DATE: ORDERING PHYSICIAN: JANIS MULLINS TECHNOLOGIST: Location: [facility] [place] Patient: Chago Newby : 1945 Visit/Account:[id number] Date of Sevice: 03/31/2018 Exam type: SMALL BOWEL SERIES History: Anemia, fatigue Comparison: CT on pelvis September 25, 2017. Findings: Patient received a barium suspension to swallow. Barium was followed throughout the normal-appearing small bowel to the unremarkable terminal ileum. The mucosal pattern appeared unremarkable. There i s no evidence of bowel obstruction. Transit time to the right-sided colon was one hour and 15 minute s. No fluoroscopy was performed during the examination. IMPRESSION: 1. Unremarkable small bowel follow-through Report Dictated By: Talisha Cosme MD at 03/31/2018 2:06 PM Report E-Signed By: Talisha Cosme MD at 03/31/2018 2:09 PM NICHOLEN:NEETA
== END ==
LOC: RAD 01:42
PROVIDERS: ATTEND Surgery
DX: D64.9 Anemia, unspecified (principal)
CPT/HCPCS: 74250

== ENCOUNTER 2018-06-03 14:48 | Outpatient (RCR) | payer MEDICARE, OTHER ==
[~2018-06-03 14:48] MED LIST changes: -BARIUM SULFATE 600 ML SUSP ONE; -GEMF600T92 PO; +GEMF600T96 PO; -LOSA100T69 PO; +LOSA100T75 PO; -LOSA25TA52 PO; +LOSA25TA57 PO
[2018-06-03 14:54] VITALS: BP 185/105
[2018-06-03 15:08] LABS: PLATELET COUNT, AUTOMATED 289 K/uL (150-450)
[2018-06-03] MEDS ORDERED: INFLUENZA VIRUS VAC 0.5ML SYR IM ONLY ONE (15:40)
--- NOTE | 2018-06-04 19:40 | ONCOLOGY FOLLOW UP NOTE ---
EVENT DATE: June 03, 2018 DIAGNOSES 1. Iron deficiency anemia. 2. Coronary artery disease. 3. Hypertension. CHIEF COMPLAINT Patient is here today for followup of his iron deficiency anemia. HEMATOLOGY HISTORY Patient is a 72-year-old male who has been followed by Dr. Tobar, and patient was found lately to have iron deficiency anemia. He was documented to have anemia since May 2017. He had a CBC on February 04, 2018, which showed white count 5.2, hemoglobin 10.1, hematocrit 31.2, platelet 273,000, and MCV 75.2. His creatinine was normal at 1.1. Serum iron was 48, TIBC 454, iron saturation 8.8%, and ferritin was only 6. Vitamin B12 level was 278 while folate was more than 22.3. The patient currently is taking thod-bmy-ciqagbt one pill of iron daily and is taking also vitamin B12 supplement orally. He is complaining of fatigue and tiredness, but denies any GI symptoms. He denies any rectal bleeding or melena. Methylmalonic acid assay came back normal at 0.16, ruling out the possibility of vitamin B12 deficiency. HISTORY OF PRESENT ILLNESS Patient is here today for followup of his iron deficiency anemia. He is complaining of cough with expectoration and shortness of breath. He has nasal discharge. 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 He bruises easily. He has pain in the elbows, ankles, and knees. PAST MEDICAL HISTORY 1. Coronary artery disease, status post myocardial infarction in April 2017, status post four stents placement. 2. Hypertension. 3. Hyperlipidemia. 4. Recurrent sinusitis. 5. Chronic asthma and bronchitis. 6. Obstructive sleep apnea. 7. Diverticulosis. 8. He had hydrocele. 9. Osteoarthritis. 10. Obesity. PAST SURGICAL HISTORY 1. Angioplasty on May 25, 2017. 2. Vascular surgery with cardiac cath in 2008. 3. Hernia repair. 4. Colonoscopy in 2009. 5. Spinal surgery, lumbar disk surgery many years ago. 6. He is not sure if he had tonsillectomy or not. FAMILY HISTORY Negative for cancer or blood diseases. SOCIAL HISTORY Patient is with five children. 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 He is an avid smoker. Denies any abuse of alcohol or illicit drugs. CURRENT MEDICATIONS 1. Nystatin topical cream twice daily. 2. Flonase 50 mcg nasal spray two sprays daily. 3. Isosorbide mononitrate 30 mg daily. 4. Losartan 25 mg daily. 5. Omeprazole 40 mg daily. 6. Vitamin B12 tablet 1000 mcg daily. 7. Citalopram 20 mg daily. 8. Atorvastatin 80 mg daily. 9. Brilinta 90 mg twice daily. 10. Nitroglycerin 0.4 mg sublingually p.r.n. for chest pain. 11. Aspirin 81 mg daily. 12. Carvedilol 12.5 mg twice daily. 13. ProAir 90 mcg one to two puffs every four to six hour p.r.n. 14. Advair 230/21 mcg inhaler two puffs twice daily. 15. Vitamin D3, 1000 units daily. 16. Iron over the counter once daily. ALLERGIES PENICILLIN (causes jaundice). REVIEW OF SYSTEMS CONSTITUTIONAL: No appetite or weight change. No fever, chills, or sweating. No recent infection. HEENT: Ears: No tinnitus or hearing problem. Nose: He has nasal discharge. Throat: No sore throat or mouth ulcers. Eyes: No diplopia or visual changes. RESPIRATORY: He has cough with expectoration and shortness of breath. CARDIOVASCULAR: No chest pain, orthopnea, or paroxysmal nocturnal dyspnea (PND). No edema. No palpitations. GASTROINTESTINAL: No nausea or vomiting. No diarrhea or constipation. No change in bowel movements. No heartburn or swallowing difficulties. No abdominal pain. No jaundice. No hematemesis, melena, or rectal bleeding. GENITOURINARY: No hematuria or dysuria. MUSCULOSKELETAL: He has pain in the elbows, ankles, and knees. NEUROLOGIC: He has tingling and numbness in the hands. No headaches or convulsions. HEMATOLOGIC/LYMPHATIC: No bleeding. He bruises easily. No weakness or fatigue. No enlarged lymph nodes. SKIN: No skin rash or lumps. PSYCHIATRIC: No anxiety or depression. PHYSICAL EXAMINATION GENERAL: Looks stable. Well developed, well nourished, and in no acute distress. VITAL SIGNS: Blood pressure 185/105, pulse 63 per minute, respirations 18 per minute, temperature 98.1, pulse ox 94% on room air. HEENT: Head: Atraumatic. No sinus tenderness to palpation. Eyes: No icterus or conjunctivitis. Mouth and Throat: No oral thrush or mucositis. NECK: Supple. No cervical or supraclavicular lymphadenopathy. LUNGS: Clear to auscultation and percussion bilaterally. HEART: Regular rate and rhythm. No gallops, murmurs, clicks, or rubs. ABDOMEN: Soft and lax. No tenderness. No hepatosplenomegaly. No masses. EXTREMITIES: No cyanosis, clubbing, or edema. LYMPHATICS: No peripheral lymphadenopathy. NEUROLOGICAL: Conscious, alert, and oriented times three. No focal motor or sensory deficits. PSYCHIATRIC: Mood and affect appear normal. SKIN: No skin rash, bruise, or purpuric eruption. DIAGNOSTIC DATA CBC showed white count 10.2, hemoglobin 13.9, hematocrit 40.5, platelets 289,000. Iron studies are pending. ASSESSMENT 1. Iron deficiency anemia with serum ferritin 6, iron saturation 8.8%. The patient started ferrous sulfate 325 mg three times daily February 18, 2018. Patient has very good response, and his hemoglobin improved from 10.3 and is currently 3.9. I am planning to continue iron for another three months, and I will see him at that time with repeat CBC and iron studies. If the iron studies and hemoglobin have corrected completely, then we will stop the iron at that time. I explained that to the patient. He is agreeable with the plan of management. 2. Possible vitamin B12 deficiency with vitamin B12 level at the lower normal of 278. His methylmalonic acid assay was normal at 0.16, ruling out the possibility of vitamin B12 deficiency. 3. Coronary artery disease, status post stent placement. 4. Hypertension, on treatment. PLAN 1. Continue ferrous sulfate 325 mg three times daily. 2. Patient to return in three months with CBC and iron studies with ferritin. 3. Patient to contact us for any new concerns or complaints. MARYJOD
[2018-06-25] MEDS ORDERED: CITA-145 PO (09:11)
[2018-07-26] MEDS ORDERED: FOLI-68 PO (13:16)
[2018-08-17] MEDS ORDERED: PRED20TA6 PO (09:56)
[2018-08-17] MEDS ORDERED: TIOT4MIS2 INH (09:56)
[2018-08-17] MEDS ORDERED: AZIT-17 PO (09:56)
[2018-08-17] MEDS ORDERED: ALB18R INH (09:56)
[2018-08-26] MEDS ORDERED: TICA90TA PO (12:03)
[2018-08-31] MEDS ORDERED: PRED-420 PO (08:51)
== END 2018-08-31 ==
LOC: SPU 14:48
PROVIDERS: ATTEND Internal Medicine Hematology
DX: D64.9 Anemia, unspecified (principal); I10 Essential (primary) hypertension; R53.83 Other fatigue; I25.10 Atherosclerotic heart disease of native coronary artery without angina pectoris; E78.5 Hyperlipidemia, unspecified; G47.33 Obstructive sleep apnea (adult) (pediatric); E66.9 Obesity, unspecified; M19.90 Unspecified osteoarthritis, unspecified site; K57.90 Diverticulosis of intestine, part unspecified, without perforation or abscess without bleeding; Z95.5 Presence of coronary angioplasty implant and graft; F17.210 Nicotine dependence, cigarettes, uncomplicated; Z23 Encounter for immunization
CPT/HCPCS: 36415; 82728; 83540; 83550; 85025; G0008; G0463; Q2037; 90674; 99212

== ENCOUNTER → 2018-08-09 | Outpatient (CLI) | payer MEDICARE, OTHER ==
--- NOTE | 2018-08-09 08:56 | RADIOLOGY IMAGING REPORT ---
FACILITY: [facility] - [place] PATIENT NAME: Chago Newby : 1945 MR: [id number] V: [id number] EXAM DATE: ORDERING PHYSICIAN: LIBBY GREER TECHNOLOGIST: Location: [facility] Patient: Chago Newby : 1945 Visit/Account:[id number] Date of Sevice: 08/09/2018 CHEST PA LAT HISTORY: Hypertension. Shortness of breath. COMPARISON: Chest x-ray April 24, 2017. FINDINGS: Cardiomediastinal contours: The heart is enlarged. Lungs and pleura: There is hyperinflation of the lungs, but there is no discrete infiltrate or conges tive heart failure. Bones/soft tissues: There are discogenic degenerative changes throughout the thoracic spine. IMPRESSION: 1. Cardiomegaly without congestive heart failure. 2. Hyperinflation without findings of an infiltrate. Report Dictated By: Pastor Blank MD at 08/09/2018 8:50 AM Report E-Signed By: Pastor Blank MD at 08/09/2018 8:51 AM WSN:[id number]
== END ==
LOC: US 03:54
PROVIDERS: ATTEND Internal Medicine Cardiovascular Disease
DX: I51.7 Cardiomegaly (principal); R91.8 Other nonspecific abnormal finding of lung field
CPT/HCPCS: 71046; 93306

== ENCOUNTER → 2018-08-23 | Outpatient (CLI) | payer MEDICARE, OTHER ==
[~2018-08-23] MED LIST changes: +ALB18R INH; +PRED20TA6 PO; +TIOT4MIS2 INH
== END ==
LOC: RESP 07:24
PROVIDERS: ATTEND Internal Medicine
DX: J44.9 Chronic obstructive pulmonary disease, unspecified (principal)
CPT/HCPCS: 94060; 94726; 94729

== ENCOUNTER 2018-09-09 08:21 | Outpatient (RCR) | payer MEDICARE, OTHER ==
[2018-09-02 09:51] VITALS: BP 154/83
[2018-09-02 10:06] LABS: PLATELET COUNT, AUTOMATED 204 K/uL (150-450)
[2018-09-09 08:28] VITALS: BP 195/96
--- NOTE | 2018-09-09 10:17 | ONCOLOGY FOLLOW UP NOTE ---
EVENT DATE: September 09, 2018 DIAGNOSES 1. Iron deficiency anemia. 2. Coronary artery disease. 3. Hypertension. CHIEF COMPLAINT Patient is here today for followup of his iron deficiency anemia. HEMATOLOGY HISTORY Patient is a 73-year-old male who has been followed by Dr. Tobar, and patient was found lately to have iron deficiency anemia. He was documented to have anemia since May 2017. He had a CBC on February 04, 2018, which showed white count 5.2, hemoglobin 10.1, hematocrit 31.2, platelet 273,000, and MCV 75.2. His creatinine was normal at 1.1. Serum iron was 48, TIBC 454, iron saturation 8.8%, and ferritin was only 6. Vitamin B12 level was 278 while folate was more than 22.3. The patient currently is taking [id number] one pill of iron daily and is taking also vitamin B12 supplement orally. He is complaining of fatigue and tiredness, but denies any GI symptoms. He denies any rectal bleeding or melena. Methylmalonic acid assay came back normal at 0.16, ruling out the possibility of vitamin B12 deficiency. HISTORY OF PRESENT ILLNESS Patient is here today for followup of his iron deficiency anemia, on iron supplement with ferrous sulfate. He is complaining of cough with expectoration, shortness of breath and wheezing. He has pain in the ankles and knees sometimes but other than that he is doing fine. PAST MEDICAL HISTORY 1. Coronary artery disease, status post myocardial infarction in April 2017, status post four stents placement. 2. Hypertension. 3. Hyperlipidemia. 4. Recurrent sinusitis. 5. Chronic asthma and bronchitis. 6. Obstructive sleep apnea. 7. Diverticulosis. 8. He had hydrocele. 9. Osteoarthritis. 10. Obesity. PAST SURGICAL HISTORY 1. Angioplasty on May 25, 2017. 2. Vascular surgery with cardiac cath in 2008. 3. Hernia repair. 4. Colonoscopy in 2009. 5. Spinal surgery, lumbar disk surgery many years ago. 6. He is not sure if he had tonsillectomy or not. FAMILY HISTORY Negative for cancer or blood diseases. SOCIAL HISTORY Patient is with five children. 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 He is an avid smoker. Denies any abuse of alcohol or illicit drugs. CURRENT MEDICATIONS 1. Nystatin topical cream twice daily. 2. Flonase 50 mcg nasal spray two sprays daily. 3. Isosorbide mononitrate 30 mg daily. 4. Losartan 25 mg daily. 5. Omeprazole 40 mg daily. 6. Vitamin B12 tablet 1000 mcg daily. 7. Citalopram 20 mg daily. 8. Atorvastatin 80 mg daily. 9. Brilinta 90 mg twice daily. 10. Nitroglycerin 0.4 mg sublingually p.r.n. for chest pain. 11. Aspirin 81 mg daily. 12. Carvedilol 12.5 mg twice daily. 13. ProAir 90 mcg one to two puffs every four to six hour p.r.n. 14. Advair 230/21 mcg inhaler two puffs twice daily. 15. Vitamin D3, 1000 units daily. 16. Iron over the counter once daily. ALLERGIES PENICILLIN (causes jaundice). REVIEW OF SYSTEMS CONSTITUTIONAL: No appetite or weight change. No fever, chills, or sweating. No recent infection. HEENT: Ears: No tinnitus or hearing problem. Nose: He has nasal discharge. Throat: No sore throat or mouth ulcers. Eyes: No diplopia or visual changes. RESPIRATORY: He has cough with expectoration, shortness of breath and wheezing. CARDIOVASCULAR: No chest pain, orthopnea, or paroxysmal nocturnal dyspnea (PND). No edema. No palpitations. GASTROINTESTINAL: No nausea or vomiting. No diarrhea or constipation. No change in bowel movements. No heartburn or swallowing difficulties. No abdominal pain. No jaundice. No hematemesis, melena, or rectal bleeding. GENITOURINARY: No hematuria or dysuria. MUSCULOSKELETAL: He has pain in the ankles and knees. NEUROLOGIC: He has tingling and numbness in the hands. No headaches or convulsions. HEMATOLOGIC/LYMPHATIC: No bleeding. He bruises easily. No weakness or fatigue. No enlarged lymph nodes. SKIN: No skin rash or lumps. PSYCHIATRIC: No anxiety or depression. PHYSICAL EXAMINATION GENERAL: Looks stable. Well developed, well nourished, and in no acute distress. VITAL SIGNS: Blood pressure 195/96, pulse 67 per minute, respirations 16 per minute, temperature 96.9, pulse ox 91% on room air. HEENT: Head: Atraumatic. No sinus tenderness to palpation. Eyes: No icterus or conjunctivitis. Mouth and Throat: No oral thrush or mucositis. NECK: Supple. No cervical or supraclavicular lymphadenopathy. LUNGS: Clear to auscultation and percussion bilaterally. HEART: Regular rate and rhythm. No gallops, murmurs, clicks, or rubs. ABDOMEN: Soft and lax. No tenderness. No hepatosplenomegaly. No masses. EXTREMITIES: No cyanosis, clubbing, or edema. LYMPHATICS: No peripheral lymphadenopathy. NEUROLOGICAL: Conscious, alert, and oriented times three. No focal motor or sensory deficits. PSYCHIATRIC: Mood and affect appear normal. SKIN: No skin rash, bruise, or purpuric eruption. DIAGNOSTIC DATA CBC showed white count 10.3, hemoglobin 14, hematocrit 41.8% and platelet count 204,000. Serum iron is 108, TIBC 339, iron saturation 31.9% and ferritin 69, which is down from 88. ASSESSMENT 1. Iron deficiency anemia with initial serum ferritin 6, iron saturation 8.8%. The patient started ferrous sulfate 325 mg three times daily February 18, 2018. He showed a very good response. His hemoglobin improved from 10.3 and currently it is 14. Iron studies also normalized. As the patient has six months of iron supplement, I am planning to stop the iron and I will see him again in three months to see if he will drop his hemoglobin and iron again. If this is the case, then further workup will be required to look for the source of bleeding. I explained that to the patient. He is agreeable to the plan of management. 2. Coronary artery disease, status post stent placement. 3. Hypertension, on treatment. PLAN 1. Stop ferrous sulfate. 2. Patient to return in three months with CBC and iron studies with ferritin. 3. Patient to contact us for any new concerns or complaints. TERRANCE
[2018-09-23] MEDS ORDERED: CITA-145 PO (09:29)
[2018-10-25] MEDS ORDERED: ISOS30TA54 PO (09:33)
[2018-10-25] MEDS ORDERED: LOSA50TA80 PO (09:33)
== END 2018-11-30 ==
LOC: ONC 08:21
PROVIDERS: ATTEND Internal Medicine Hematology
DX: D64.9 Anemia, unspecified (principal)
CPT/HCPCS: 36415; 82728; 83540; 83550; 85025; G0463; 99212

== ENCOUNTER → 2018-10-25 | Outpatient (CLI) | payer MEDICARE, OTHER ==
[~2018-10-25] MED LIST changes: +LOSA50TA80 PO
[2018-10-25 09:58] LABS: PLATELET COUNT, AUTOMATED 212 K/uL (150-450)
[2018-10-25 10:53] LABS: LDL CHOLESTEROL 26 mg/dl
== END ==
LOC: LAB 09:41
PROVIDERS: ATTEND Internal Medicine
DX: Z12.5 Encounter for screening for malignant neoplasm of prostate (principal); E78.5 Hyperlipidemia, unspecified; G47.33 Obstructive sleep apnea (adult) (pediatric); I10 Essential (primary) hypertension; I25.10 Atherosclerotic heart disease of native coronary artery without angina pectoris; J44.9 Chronic obstructive pulmonary disease, unspecified
CPT/HCPCS: 36415; 84443; 85025; G0103; 82040; 82247; 82310; 82374; 82435; 82465; 82565; 82947; 83718; 84075; 84132; 84153; 84155; 84295; 84450; 84460; 84478; 84520

== ENCOUNTER 2018-12-09 13:08 | Outpatient (RCR) | payer MEDICARE, OTHER ==
[2018-12-08 08:43] LABS: PLATELET COUNT, AUTOMATED 187 K/uL (150-450)
[2018-12-08 11:23] VITALS: BP 143/92
[2018-12-09 13:26] VITALS: BP 136/82
--- NOTE | 2018-12-10 03:44 | [facility] ONCOLOGY NOTE ---
EVENT DATE: December 10, 2018 DIAGNOSES 1. Iron deficiency anemia. 2. Coronary artery disease. 3. Hypertension. CHIEF COMPLAINT Patient is here today for followup of his iron deficiency anemia. HEMATOLOGY HISTORY Patient is a 73-year-old male who has been followed by Dr. Tobar, and patient was found lately to have iron deficiency anemia. He was documented to have anemia since May 2017. He had a CBC on February 04, 2018, which showed white count 5.2, hemoglobin 10.1, hematocrit 31.2, platelet 273,000, and MCV 75.2. His creatinine was normal at 1.1. Serum iron was 48, TIBC 454, iron saturation 8.8%, and ferritin was only 6. Vitamin B12 level was 278 while folate was more than 22.3. The patient currently is taking [id number] one pill of iron daily and is taking also vitamin B12 supplement orally. He is complaining of fatigue and tiredness, but denies any GI symptoms. He denies any rectal bleeding or melena. Methylmalonic acid assay came back normal at 0.16, ruling out the possibility of vitamin B12 deficiency. HISTORY OF PRESENT ILLNESS Patient is here today for followup of his iron deficiency anemia. Patient is complaining of cough with expectoration, shortness of breath, and occasional wheezing. He also has nasal discharge and occasional epistaxis. He has pain in his ankles and knees and occasional headache. He is a little bit tired and fatigued. PAST MEDICAL HISTORY 1. Coronary artery disease, status post myocardial infarction in April 2017, status post placement of four stents. 2. Hypertension. 3. Hyperlipidemia. 4. Recurrent sinusitis. 5. Chronic asthma and bronchitis. 6. Obstructive sleep apnea. 7. Diverticulosis. 8. He had hydrocele. 9. Osteoarthritis. 10. Obesity. PAST SURGICAL HISTORY 1. Angioplasty on May 25, 2017. 2. Vascular surgery with cardiac cath in 2008. 3. Hernia repair. 4. Colonoscopy in 2009. 5. Spinal surgery, lumbar disk surgery many years ago. 6. He is not sure if he had tonsillectomy or not. FAMILY HISTORY Negative for cancer or blood diseases. SOCIAL HISTORY Patient is with five children. 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 He is an avid smoker. Denies any abuse of alcohol or illicit drugs. CURRENT MEDICATIONS 1. Nystatin topical cream twice daily. 2. Flonase 50 mcg nasal spray two sprays daily. 3. Isosorbide mononitrate 30 mg daily. 4. Losartan 25 mg daily. 5. Omeprazole 40 mg daily. 6. Vitamin B12 tablet 1000 mcg daily. 7. Citalopram 20 mg daily. 8. Atorvastatin 80 mg daily. 9. Brilinta 90 mg twice daily. 10. Nitroglycerin 0.4 mg sublingually p.r.n. for chest pain. 11. Aspirin 81 mg daily. 12. Carvedilol 12.5 mg twice daily. 13. ProAir 90 mcg one to two puffs every four to six hour p.r.n. 14. Advair 230/21 mcg inhaler two puffs twice daily. 15. Vitamin D3, 1000 units daily. 16. Iron over the counter once daily. ALLERGIES PENICILLIN (causes jaundice). REVIEW OF SYSTEMS CONSTITUTIONAL: No appetite or weight change. No fever, chills or sweating. No recent infection. HEENT: Ears: No tinnitus or hearing problem. Nose: He has nasal discharge and occasional epistaxis. Throat: No sore throat or mouth ulcers. Eyes: No diplopia or visual changes. RESPIRATORY: He has cough with expectoration, shortness of breath, and occasional wheezing. CARDIOVASCULAR: No chest pain, orthopnea, or paroxysmal nocturnal dyspnea (PND). No edema. No palpitations. GASTROINTESTINAL: No nausea or vomiting. No diarrhea or constipation. No change in bowel movements. No heartburn or swallowing difficulties. No abdominal pain. No jaundice. No hematemesis, melena or rectal bleeding. GENITOURINARY: No hematuria or dysuria. MUSCULOSKELETAL: He has pain in the ankles and knees. NEUROLOGICAL: He has headache occasionally. HEMATOLOGIC/LYMPHATIC: He has mild fatigue. SKIN: No skin rash or lumps. PSYCHIATRIC: No anxiety or depression. PHYSICAL EXAMINATION GENERAL: Looks stable. Well-developed, well-nourished, and in no acute distress. VITAL SIGNS: Blood pressure 136/82, pulse 69 per minute, respirations 16 per minute, temperature 96.6, pulse oximetry 90% on room air. HEENT: Head: Atraumatic. No sinus tenderness to palpation. Eyes: No icterus or conjunctivitis. Mouth and throat: No oral thrush or mucositis. NECK: Supple. No cervical or supraclavicular lymphadenopathy. LUNGS: Clear to auscultation and percussion bilaterally. HEART: Regular rate and rhythm. No gallops, murmurs, clicks or rubs. ABDOMEN: Soft and lax. No tenderness. No hepatosplenomegaly. No masses. EXTREMITIES: No cyanosis, clubbing or edema. LYMPHATICS: No peripheral lymphadenopathy. NEUROLOGICAL: Conscious, alert and oriented times three. No focal motor or sensory deficits. PSYCHIATRIC: Mood and affect appear normal. SKIN: No skin rash, bruise or purpuric eruption. DIAGNOSTIC DATA CBC showed white count 7.2, hemoglobin 13.4, hematocrit 39.4%, and platelet 187,000. Serum iron is 53, TIBC 269, iron saturation 19.7% and serum ferritin 95, which is trending up. ASSESSMENT 1. Iron deficiency anemia with initial serum ferritin of 6, iron saturation 8.8%. The patient started ferrous sulfate 325 mg three times daily February 18, 2018. He showed a very good response to the treatment. His hemoglobin improved from 10.3 to 14, and currently it is 13.4. His iron studies normalized. His current ferritin is 95, which is up from 69. Patient is going to have a colonoscopy by Dr. Zuleta very soon, and he is off iron since last visit. I am planning to keep iron on hold, and I will see him again in six months with CBC, chem panel, iron studies with ferritin. 2. Coronary artery disease, status post stent placement. 3. Hypertension, on treatment. PLAN 1. Continue to hold the ferrous sulfate. 2. Patient to return in six months with CBC and iron studies with ferritin. 3. Patient to contact us for any new concerns or complaints. TERRANCE
== END 2018-12-20 13:40 | disposition home or self-care (01) ==
LOC: ONC 13:08
PROVIDERS: ATTEND Internal Medicine Hematology
DX: D50.9 Iron deficiency anemia, unspecified (principal); I25.10 Atherosclerotic heart disease of native coronary artery without angina pectoris; I10 Essential (primary) hypertension; Z79.899 Other long term (current) drug therapy; R53.83 Other fatigue; R05 Cough; R06.02 Shortness of breath; F17.210 Nicotine dependence, cigarettes, uncomplicated
CPT/HCPCS: 36415; 36416; 82728; 82948; 83540; 83550; 85025; G0463; 99212

== ENCOUNTER 2018-12-15 00:13 | Day surgery (SDC) | payer MEDICARE, OTHER ==
[~2018-12-15] VITALS: Ht 170.2 cm; Wt 92.5 kg
[2018-12-15] MEDS ORDERED: NORMOSOL R SOLN(*) 1000 ML BAG 1,000 ML IV PRN (06:00)
[2018-12-15] MEDS ORDERED: LIDOCAINE/SOD BICARB 8.4% SYR ID ONE (06:00)
[2018-12-15 07:22] VITALS: BP 153/85
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
[2018-12-15] MEDS ORDERED: LIDOCAINE MPF 1% 5 ML VIAL ONE (08:13)
[2018-12-15] MEDS ORDERED: PROPOFOL EMUL(*) 10MG/ML 20 ML 20 ML ONE ×2 (08:13)
[2018-12-15] MEDS ORDERED: LIDOCAINE 1%MDV(*)200 MG/20 ML 1 ML ONE (08:13)
[2018-12-15] MEDS ORDERED: LIDO/EPI 1% MDV 1:100,000 20ML INFIL ONE (08:13)
[2018-12-15 08:56] VITALS: BP 134/86
[2018-12-15 09:00] VITALS: BP 133/82
--- NOTE | 2018-12-15 09:10 | Short(Outpt) Discharge Summary ---
Discharge Summary Reason for Hosp/Final Diag: (1) Mass of scalp Status: Chronic Hospital Course & Plan: Left postauricular subcutaneous nodule removed without problems. (2) Anemia Status: Chronic Hospital Course & Plan: Repeat colonoscopy completed without problems, normal other than diverticulosis, no inflammation. Departure Discharge to: Home, Self Care Discharge Instructions Home Meds Active Scripts Isosorbide Mononitrate (ISOSORBIDE MONONITRATE ER) 30 Mg Tab.er.24h, 30 MG PO QDAY, #90 TAB 3 Refills Prov:ANN-MARIE MIRANDA MD 10/25/18 Losartan Potassium (LOSARTAN POTASSIUM) 50 Mg Tablet, 50 MG PO QDAY, #90 TAB 3 Refills Prov:ANN-MARIE MIRANDA MD 10/25/18 Citalopram Hydrobromide (CITALOPRAM HBR) 20 Mg Tablet, 20 MG PO QDAY, #90 TAB 1 Refill Prov:ANN-MARIE MIRANDA MD 09/23/18 Ticagrelor (BRILINTA) 90 Mg Tablet, 90 MG PO BID, #180 TAB 3 Refills Prov:ANN-MARIE MIRANDA MD 08/26/18 Tiotropium [place] 2.5 MCG/ACT (Spiriva Respimat 2.5 MCG/ACT) 4 Gm Mist.inhal, 2 PUFF INH QDAY, #1 INHALER 6 Refills Prov:ANN-MARIE MIRANDA MD 08/17/18 Albuterol Sulfate (VENTOLIN HFA) 18 Gm Inh, 2 PUFF INH Q4-6H PRN for SHORTNESS OF BREATH, #1 INH 6 Refills Prov:ANN-MARIE MIRANDA MD 08/17/18 Folic Acid (FOLIC ACID) 1 Mg Tablet, 1 TAB PO QDAY for 90 Days, #90 TAB 1 Refill Prov:ANN-MARIE MIRANDA MD 07/26/18 Omeprazole (OMEPRAZOLE) 40 Mg Capsule.dr, 40 MG PO QDAY, #90 CAP 4 Refills Prov:ANN-MARIE MIRANDA MD 11/09/17 Cyanocobalamin (Vitamin B-12) (VITAMIN B-12) 1,000 Mcg Tablet, 1000 MCG PO QDAY, #30 TAB Prov:ANN-MARIE MIRANDA MD 09/28/17 Atorvastatin (LIPITOR) 80 Mg Tab, 1 TAB PO QDAY, #90 TAB 3 Refills Prov:ANN-MARIE MIRANDA MD 05/26/17 Reported Medications Cholecalciferol (Vitamin D3) (VITAMIN D3) 1,000 Unit Tablet, 1000 UNIT PO, TAB 02/19/18 Nitroglycerin (NITROGLYCERIN) 0.4 Mg Tab.subl, 0.4 MG SL Q5MIN PRN for chest pain 05/04/17 Aspirin (ASPIR 81) 81 Mg Tablet.dr, 81 MG PO QDAY, TAB 05/04/17 Carvedilol (CARVEDILOL) 12.5 Mg Tablet, 12.5 MG PO BID, TAB 05/04/17 Fluticasone/Salmeterol (ADVAIR HFA 230-21 MCG INHALER) 1 Inh Inh, 2 PUFF INH BID, INH 02/24/17 Diet: Regular Activity: As Tolerated Special Instructions: The nodule excision and colonoscopy were completed without problems. You may remove the band-aid on 12/17/18, then you can shower. After showering, leave the incision open to air. Your colonoscopy was normal, other than diverticulosis. There was no inflammation this time. No other concerning findings, polyps, cancer, etc. My office will call you in the next day or two to schedule a follow up appointment to see me back in my office to remove your sutures and discuss your results with you. Problem Qualifiers (1) Anemia: Anemia type: unspecified type Qualified Codes: D64.9 - Anemia, unspecified JANIS MULLINS MD December 15, 2018 09:10
[2018-12-15 09:32] VITALS: BP 160/79
[2018-12-15 09:44] VITALS: BP 139/74
[2018-12-15 09:46] VITALS: BP 151/74
== END 2018-12-15 10:03 | disposition home or self-care (01) ==
LOC: OR 00:13
PROVIDERS: ATTEND Surgery
DX: K57.30 Diverticulosis of large intestine without perforation or abscess without bleeding (principal)
CPT/HCPCS: 00811; 45378; 88305; J2001; J2704